=== PATIENT | female | born 1995 | race Caucasian/White ===

== ENCOUNTER 2021-09-16 14:42 | Emergency (ER) | payer OTHER ==
[2021-09-16] MEDS ORDERED: diphenhydrAMINE 50 MG/ML VIAL ONE (16:03)
[2021-09-16] MEDS ORDERED: Ketorolac Tromethamine 30 MG/ML VIAL ONE (16:03)
[2021-09-16] MEDS ORDERED: Metoclopramide HCl 10 MG/2 ML VIAL ONE (16:04)
[2021-09-16] MEDS ORDERED: SODIUM CHLORIDE IVPB SCH (17:00)
[2021-09-16] MEDS ORDERED: ADMIXTURE FEE IVPB SCH (17:00)
[2021-09-16] MEDS ORDERED: CAFFEINE IVPB SCH (17:00)
[2021-09-16] MEDS ORDERED: SODIUM BENZOATE IVPB SCH (17:00)
== END 2021-09-16 18:45 | disposition home or self-care (01) ==
LOC: CSHERS 14:42
DX: G43.919 Migraine, unspecified, intractable, without status migrainosus (principal)
CPT/HCPCS: 96365; 96367; 96375; J0706; J1200; J1885; J2765; J7050